=== PATIENT | male | born 1990 | race African-American/Black ===

== ENCOUNTER 2017-01-13 10:14 | Emergency (ER) | payer OTHER ==
[~2017-01-13] VITALS: Ht 180.3 cm; Wt 83.7 kg
[2017-01-13 10:30] VITALS: TEMP 36.8; Ht 180.3 cm; Wt 83.7 kg
[2017-01-13] MEDS ORDERED: ONDANSETRON INJ 2 MG/ML 2 ML VIAL IV STA (10:43)
[2017-01-13] MEDS ORDERED: HYDROmorphone INJ 1 MG/ML SYR IV STA (10:43)
[2017-01-13] MEDS ORDERED: SODIUM CHLORIDE 0.9% 1000ML 1,000 ML IV STA (10:43)
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
[2017-01-13 11:03] LABS: BASO % 0.2 %; BASO ABS # 0.01 K/uL (0-0.2); COMPLETE YES; EOS % 3.2 %; HEMATOCRIT 40.3 % (42-52); LYMPH % 38.8 %; LYMPH ABS # 1.83 K/uL (1.2-3.4); MEAN CORPUSCULAR HEMOGLOBIN 25.1 pg (25-34); MEAN CORPUSCULAR HGB CONC 31.8 g/dl (32-36); MEAN PLATELET VOLUME 8.5 fL (7.4-10.4); MONO % 10.2 %; NEUT % 47.6 %; PLATELET COUNT 231 K/uL (130-400); WHITE BLOOD COUNT 4.72 K/uL (4.8-10.8)
[2017-01-13 11:07] LABS: URINE APPEARANCE CLOUDY (CLEAR); URINE BILIRUBIN NEG (NEG); URINE COLOR DK YELLOW; URINE EPITHELIAL CELL AUTO 20-30 /lpf (0-5); URINE NITRITE NEG (NEG); URINE SPECIFIC GRAVITY 1.028 (1.000-1.030); UROBILINOGEN NEG (NEG)
[2017-01-13 11:23] LABS: BUN/CREATININE RATIO 6.8 (10-20); CALCIUM 9.2 mg/dl (8.5-10.1); CREATININE 1.2 mg/dl (0.60-1.40); POTASSIUM 3.8 mmol/L (3.5-5.1)
[2017-01-13 11:51] LABS: MANUAL MICROSCOPIC REQUIRED? NO; REVIEW REQ? NO
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
[2017-01-13] MEDS ORDERED: OXYC-57 PO (12:46)
[2017-01-13 13:01] VITALS: BP 119/71; PULSE 70; O2SAT 100
== END 2017-01-13 13:03 | disposition home or self-care (01) ==
LOC: C.EDB 10:17 → C.EDC 13:03
DX: M25.552 Pain in left hip (principal); V11.4XXA Pedal cycle driver injured in collision with other pedal cycle in traffic accident, initial encounter; F17.200 Nicotine dependence, unspecified, uncomplicated